=== PATIENT | female | born 1980 | race Asian ===

== ENCOUNTER 2024-12-29 13:41 | Outpatient (REF) | payer OTHER, SELFPAY ==
[2024-12-29 14:31] LABS: MANUAL DIFF FLAG NO
[2024-12-29 17:54] LABS: Hematocrit 45.1 % (37.0-47.0); Hemoglobin 14.6 g/dl (12.0-16.0); Imm Gran Abs Auto 0.02 X10*3/uL (0.00-0.03); Imm Gran Pct Auto 0.2 % (0.0-0.4); Lymphocytes Absolute Auto 2.4 X10*3/uL (1.2-4.9); Mean Corpuscular HGB Conc 32.4 g/dl (31.0-35.0); Mean Corpuscular Hemoglobin 28.8 pg (27.0-33.0); Mean Corpuscular Volume 89.0 fL (80.0-98.0); NRBC Abs Auto 0.000 X10*3/uL (0.0-0.012); NRBC Pct Auto 0.0 /100WBC (0.0-0.2); Platelet Count 390 X10*3/uL (160-400); Red Blood Count 5.07 X10*6/uL (4.20-5.50); White Blood Count 9.2 X10*3/uL (4.8-10.8)
[2024-12-29 18:05] LABS: Appearance Urine Clear; Glucose Urine UA Negative (Negative); PH 6.0 (5.0-9.0); Specific Gravity - Urine <= 1.005 (1.005-1.025)
[2024-12-29 18:42] LABS: Alanine Aminotransferase 11 U/L (0-31); Albumin Level 4.5 g/dL (3.5-5.0); Alkaline Phosphatase 84 U/L (39-117); Anion Gap 12 (12-20); Aspartate Amino Transferase 28 U/L (5-31); Blood Urea Nitrogen 12 mg/dL (9-16); Calcium 9.3 mg/dL (8.4-10.2); Carbon Dioxide 26 mmol/L (22-29); Chloride 104 mmol/L (96-108); Cholesterol 260 mg/dL (<200); Estimated Glomerular Filt Rate > 60; HDL Cholesterol 46 mg/dL (>40); Magnesium 2.2 mg/dL (1.6-2.6); Potassium 4.4 mmol/L (3.3-5.1); Sodium 138 mmol/L (135-145); Total Protein 8.0 g/dL (6.5-8.0); Triglycerides 200 mg/dL (<150)
[2024-12-29 19:00] LABS: Folate 7.6 ng/mL (> or = 4.0); Vitamin B12 437 pg/mL (200-900)
--- OUTSIDE RECORDS SUMMARY | 2024-12-29 19:48 | XMS_ITS | Clinical Summary ---
Author Organization [facility] Address [address] [place] [phone] Phone Care Team Providers Care Data Entry Processor Name Role Phone Physician, No Pcp Primary Care Provider Unavaila ble Allergies No known active allergies Medications No known medications Encounters Date Type Department Care Team Description 10/28/2024 7:35 AM EDT Anesthesia Event [facility] [place] [address] [place] [phone] Kristofer Xie MD Burton, Heather, CRNA 10/28/2024 7:30 AM EDT - 10/28/2024 12:00 PM EDT Surgery [facility] [place] [address] [place] [phone] Carissa Whitaker MD MASTOPEXY [[id number] (CPT )] 10/28/2024 6:08 AM EDT - 10/28/2024 2:40 PM EDT Hospital Encounter [facility] [place] [address] [place] [phone] Carissa Whitaker MD Discharge Disposition: Home or Self Care from Last 3 Months Surgical History Surgery Date Site/Laterality Comments BREAST ENHANCEMENT SURGERY W IMPLANT EYE SURGERY Medical History Medical History Date Comments Glaucoma normal pressure Social History Tobacco Use Types Packs/Day Years Used Date Smoking Tobacco: Never Smokeless Tobacco: Never Tobacco Cessation:Counseling Given: Not Answered Alcohol Use Standard Drinks/Week Comments Not Asked 0 (1 standard drink = 0.6 oz pur e alcohol) couple times a year Interpersonal Safety Answer Date Record ed Physical Abuse Unrecognized value 10/28/2024 Verbal Abuse Unrecognized value 10/28/2024 Comments No Sex and Gender Information Value Date Recorded Sex Assigned at Not on file Legal Sex Female 6:09 AM EDT Gender Identity Not on file Sexual Orientation Not on file Obstetrics History Last Filed Vital Signs Vital Sign Reading Time Taken Comments Blood Pressure 97/75 10/28/2024 12:22 PM EDT Pulse 67 10/28/2024 12:22 PM EDT Temperature 36.5 C (97.7 F) 10/28/2024 12:22 PM EDT Respiratory Rate 16 10/28/2024 12:22 PM EDT Oxygen Saturation 99% 10/28/2024 12:22 PM EDT Inhaled Oxygen Concentration - - Weight 56.7 kg (125 lb) 10/26/2024 2:00 PM EDT Height 160 cm (5' 3 ) 10/26/2024 2:00 PM EDT Body Mass Index 22.14 10/26/2024 2:00 PM EDT Plan of Treatment Health Maintenance Due Date Last Done Comments Breast Cancer Screening 1982 DTaP,Tdap,and Td Vaccines (1 - Tdap) 2001 Hepatitis B Vaccines (1 of 3 - 19+ 3-dose series) 2001 Cervical Cancer Screening: P ap Smear 08/27/2003 HPV Vaccines (1 - 3-dose SCD M series) 2009 Depression Screening 02/10/2024 HIV Screening 07/28/2024 Hepatitis C Screening 07/28/2024 Social Influencers of Health Screening 07/28/2024 COVID-19 Vaccine ( - 2024-2 6 season) 2024 Influenza Vaccine (#1) 2024 RSV Immunization Adult Patie nts (1 - 1-dose 75+ series) 2057 HIB Vaccines Aged Out No longer eligi ble based on patient's age to complete this topic Hepatitis A Vaccines Aged Out No long er eligible based on patient's age to complete this topic IPV Vaccines Aged Out No longer eligi ble based on patient's age to complete this topic MMR Vaccines Aged Out No longer eligi ble based on patient's age to complete this topic Meningococcal ACWY Vaccine Aged Out N o longer eligible based on patient's age to complete this topic Meningococcal B Vaccine Aged Out No l onger eligible based on patient's age to complete this topic Pneumococcal Vaccine: Pediat rics (0 to 5 Years) and At-Risk Patients (6 to 49 Years) Aged Out No longer eligible b ased on patient's age to complete this topic RSV Immunization Patients Un cliff 20 months Aged Out No longer eligible b ased on patient's age to complete this topic Varicella Vaccines Aged Out No longer eligible based on patient's age to complete this topic Medical Devices Implanted Type Area Occupancy Specialist Device Identifier Shelf Expiration Date Model / Serial / Lot Breast Implants Breast Implants Bilateral: Breast Procedures Procedure Name Priority Date/Time Associated Diagnosis Comments TH AN LMA(NO CHARGE) Routine 10/28/2024 7:58 AM EDT CO REMOVAL INTACT BREAST IMPLANT 10/28/2024 7:31 AM EDT Encounter for cosmetic surgery Case Notes CC, HEADLIGHT CO MASTOPEXY 10/28/2024 7:31 AM EDT Encounter for cosmetic surgery Case Notes CC, HEADLIGHT from Last 3 Months Results * TH AN LMA(NO CHARGE) (10/28/2024 7:58 AM EDT) Viky Cramer CRNA - 10/28/2024 7:58 AM EDT Viky Toribio CRNA 10/28/2024 7:59 AM General Information and Staff Patient location during procedure: OR Resident/PBX INSTALLER: Viky Toribio CRNA Performed: resident/CORNELL/CAA Performed by: Viky Toribio CRNA Authorized by: Kristofer Xie MD Intubation Urgency: elective Final Airway Details Number of attempts at approach: 1 Number of other approaches attempted: 0 LMA Size: 4 LMA Type: Unique LMA Seal Pressure: Final airway type: LMA Indications and Patient Condition Indications for airway management: anesthesia Spontaneous ventilation: present Sedation level: Yes Preoxygenated: yes Soft Tissue Damage: No Dentition Unchanged: Yes Patient position: sniffing Mask difficulty assessment: 0 - not attempted us Kristofer Xie MD ANESTHESIA ORDERABLES Final Re sult from Last 3 Months Advance Directives * Full Code - Default (Latest Code Status on File) Date Activated Date Inactivated Comments 10/28/2024 7:14 AM 10/28/2024 4:46 PM This is orde r is used when code status has not been discussed with the patient, or code status is otherwise unknown/unconfirmed To update the patient's code status, place a code status order. Do not modify or discontinue any currently active code status orders. Care Teams Data Entry Processor Relationship Specialty Start Date End Date Physician, No Pcp PCP - General 10/25/24
[2024-12-30 05:32] LABS: CT PCR Urine NOT DETECTED (Not Detect.); NG PCR Urine NOT DETECTED (Not Detect.)
[2024-12-30 08:06] LABS: HBS Num1 7.47 mIU/mL (0-7.99); HBsAGNum1 0.45 S/CO (0.00-0.99); HIV Num 1 0.06 S/CO (0.00-0.99); Hepatitis B Surface Antigen Negative (Negative); ~HepC Num1 0.17 S/CO (0.00-0.79); ~Hepatitis B Surface Antibody NONREACTIVE (Nonreactive); ~Hepatitis C Antibody Nonreactive (Nonreactive)
[2025-01-03 07:58] LABS: VITAMIN D (1,25 OH) D3 63 pg/mL; Vit D (1,25-Dihydroxy) Total 63 pg/mL (18-72); Vitamin D (1,25 OH) D2 <8 pg/mL
== END 2024-12-29 13:42 | disposition home or self-care (01) ==
LOC: HO.HKASLDS 13:41
PROVIDERS: PCP Student in an Organized Health Care Education/Training Program; Visit Provider Student in an Organized Health Care Education/Training Program
DX: Z76.89 Persons encountering health services in other specified circumstances (principal); Z23 Encounter for immunization; R03.0 Elevated blood-pressure reading, without diagnosis of hypertension; H93.19 Tinnitus, unspecified ear; H40.89 Other specified glaucoma
CPT/HCPCS: 80053; 80061; 81003; 82607; 82652; 82746; 83036; 83735; 84443; 85025; 86706; 86803; 87340; 87389; 87491; 87591; 90471; 90656; 99202

== ENCOUNTER 2024-12-29 13:41 | Outpatient (AMB) | payer OTHER, SELFPAY ==
--- NOTE | 2024-12-29 13:47 | A.OFFPC_ITS ---
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 Elevated blood pressure: The patient is concerned about high blood pressure, which runs in the family. Readings have been higher than before ever since the patient's father and the patient experienced significant stress. The patient is only aware of elevated readings when measured in clinical settings, such as at a doctor's or dentist's office. Tinnitus: The patient developed constant tinnitus about a year ago, approximately one month after moving to the area. The patient was evaluated and provided with hearing aids, which did not provide any benefit. The patient was advised to investigate for other comorbidities, such as high cholesterol, as a potential underlying cause. Low-pressure glaucoma, left eye: The patient has a history of low-pressure glaucoma in the left eye. The condition is managed with Timolol eye drops. Health Maintenance: The patient is up-to-date with mammograms, with the most recent one in August having normal results. The last Pap smear with HPV testing was performed two years ago and was normal, with a recommended follow-up interval of five years. 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 - The patient is a single parent. - Reports experiencing significant stres s following the of the patient's father nearly three years ago. - Sleep: Reports difficulty falling asle ep for the last few weeks, but sleep is uninterrupted once asleep. - The patient is not currently sexually active and is not using contraception. Family History: - Reports a family history of high blood pressure and high cholesterol. - Father of stomach cancer (gastroe sophageal junction). - Paternal grandfather of stomach c ancer. Diagnostic Results: - Tests: Mammogram in August was normal. - Tests: Pap smear with HPV co-testing t wo years ago was normal, with a recommendation for repeat testing in five years. Past Medical History - Low-pressure glaucoma, left eye, manag ed with Timolol eye drops. - Tinnitus, constant, for approximately one year. Health Maintenance - Comprehensive lab work will be ordered , including a CBC, CMP, calcium, magnesium, thyroid panel, B12, folate, vitamin D, hemoglobin A1c, and a lipid panel. - Baseline screening for hepatitis B, he patitis C, and HIV will be performed. - A follow-up visit is scheduled in two weeks to review the results. [facility] Medical History (Updated 12/29/24 @ 14:37 by Rodolfo Sandoval MD) Glaucoma Tinnitus Elevated blood pressure reading Family History (Updated 12/29/24 @ 13:53 by Loni Cardona CMA) Mother HTN (hypertension) Hypercholesteremia Father HTN (hypertension) Social History Housing: House Patient Tobacco Use Status: Never used Tobacco e-Cigarette/Vaping Use: Never Used service: No Current occupational status: unemployed Cognitive needs: No Hearing needs: Yes (has bilateral hearing aids for tinnitus) Vision needs: Yes (contacts) Questionnaire PHQ-9 Over the last 2 weeks, how often have you been bothered by any of the following problems? 1. Little interest or pleasure in doing things: several days 2. Feeling down, depressed, or hopeless: not at all 3. Trouble falling or staying asleep, or sleeping too much: several days 4. Feeling tired or having little energy: several days 5. Poor appetite or overeating: not at all 6. Feeling bad about yourself - or that you are a failure or have let yourself or your family down: not at all 7. Trouble concentrating on things, such as reading the newspaper or watching television: several days 8. Moving or speaking so slowly that other people could have noticed. Or the opposite - being so fidgety or restless that you have been moving around a lot more than usual: not at all 9. Thoughts that you would be better off or of hurting yourself in some wa y: not at all Total score: 4 Depression Screening Interpretation: Negative Depression Screening Done: Yes Source: Developed by Drs. Ildefonso Hackett, Sheela Alfaro, Rosendo Nair and colleagues, with an educational reymundo from [employer]. Thrive Questionnaire Date Thrive assessed: 12/29/24 I am a: Patient What is your living situation today?: I have a steady place to live Within the past 12 months, did the food you bought not last and you didn't have the money to get more?: Never true Within the past 12 months, did you worry whether your food would run out before you got money to buy more?: Never true Do you have trouble paying for medicines?: No Do you have trouble getting transportation to medical appointments?: No Do you have trouble paying your heating and electricity bill?: No Do you have trouble taking care of your child, family member or friend?: No Do you have trouble with day-to-day activities such as bathing, preparing meals, shopping, managing finances, etc.?: No Are you currently unemployed and looking for a job?: I choose not to answer this question Are you interested in more education?: I choose not to answer this question Please select the resources that you would like help with: None Currently or been in a relationship where the following occur: I choose not to answer THRIVE Score: 0 AUDIT C Alcohol Use Questionnaire (AUDIT-C) 1. How often do you have a drink containing alcohol?: Never Total Score: 0 CRISTINA-7 AMB Questionnaire CRISTINA-7 Date CRISTINA - 7 assessed: 12/29/24 Feeling nervous, anxious, or on edge: 0 = Not at all Not being able to stop or control worryin = Not at all Worrying too much about different things: 0 = Not at all Trouble relaxin = Not at all Being so restless that it is hard to sit still: 0 = Not at all Becoming easily annoyed or irritable: 0 = Not at all Feeling afraid as if something awful might happen: 0 = Not at all Total CRISTINA-7 score (0-4 normal; 5-9 mild; 10-14 moderate; 15-21 severe): 0 Source: Developed by Sheela Cole Kurt Kroenke and colleagues, with an educational reymundo from [employer]. Review of Systems Narrative Review of Systems - Eyes: Reports low-pressure glaucoma in the left eye. - Ears: Reports constant tinnitus for the past year. - Cardiovascular: Denies swelling of the lower extremities. - Gastrointestinal: Reports normal bowel movements. - Genitourinary: Reports normal urination. - Gynecological: Reports regular menses. - Psychiatric: Reports experiencing significant stress. - Neurological: Reports recent difficulty initiating sleep but denies difficulty maintaining sleep. 10-point ROS reviewed and negative except as noted in HPI Physical exam (Primary Care) Vital Signs: Last Vital Signs Pulse 58 12/29/24 13:51 BP 132/82 12/29/24 13:51 Pulse Ox 100 12/29/24 13:51 Oxygen Delivery Method Room Air 12/29/24 13:51 BMI result Body Mass Index 20.6 Tobacco/Smoking Status: Tobacco use Status Tobacco use date assessed 12/29/24 12/29/24 13:49 Patient Tobacco Use Status Never used Tobacco 12/29/24 13:49 e-Cigarette/Vaping Use Never Used 12/29/24 13:58 PHQ-9: PHQ-9 Score PHQ-9: Total score 4 12/29/24 14:02 Depression Screening Interpretation: Negative Thrive Assessment: Date of Thrive Assessment Date Thrive assessed 12/29/24 12/29/24 13:49 Currently or been in a relationship where the following occur: I choose not to answer Narrative Physical Exam General: Well-appearing, in no acute distress. Vital signs: Blood pressure is 132/82, slightly elevated but not concerning. HEENT: Normocephalic, atraumatic. PERRLA, EOMI. Conjunctiva clear, sclera anicteric. Oropharynx clear, mucous membranes moist. TMs intact bilaterally. Noted low pressure glaucoma in the left eye, patient uses Timolol eye drops. Neck: Supple, no lymphadenopathy, no thyromegaly, no JVD or carotid bruits. Cardiovascular: RRR, normal S1/S2, no murmurs, rubs, or gallops. Peripheral pulses 2+ and symmetric. No edema. Respiratory: Lungs clear to auscultation bilaterally, no wheezes, rales, or rhonchi. Normal effort. Abdomen: Soft, non-tender, non-distended. Normoactive bowel sounds. No hepatosplenomegaly, no masses. MSK: Full range of motion, no joint swelling or deformity. Normal gait. Skin: Warm, dry, intact. No rashes, lesions, or pallor. Neuro: Alert and oriented x3. Cranial nerves II-XII intact. Strength 5/5 throughout. Sensation intact. Reflexes 2+ symmetric. Normal coordination and gait. Psych: Appropriate mood and affect. Normal judgment and insight. Office Procedures Flu Questionnaire Does the patient have a severe egg allergy?: No Does the patient have severe life threatening allergies?: No Does the patient have a fever or illness today?: No Has the patient ever had Guillain-[place] Syndrome?: No Has the patient ever had any past reaction to a flu shot?: No Immunizations Fluarix [id number] (PF) 45 mcg (15 mcg x 3)/0.5 mL IM syringe Performing Provider: Rodolfo Sandoval MD Performing Location: [facility] Administered by: Loni Cardona CMA on 12/29/24 14:03 Dose Route Admin Location Dispensed Lot Number Expiration Date NDC Kst Operator 0.5 mL IM Right Deltoid 0.5 mL [id number] 08/08/25 [id number] [employer] VIS Given Date VIS Provided VIS Publication Date 12/29/24 Single Vaccine 24 Eligibility Eligibility Date Funding Source Not [facility] Eligible 12/29/24 Private Coding Level of Care Code New Pt Level 4 (98636) Diagnoses Elevated blood pressure reading R03.0 Tinnitus H93.19 Glaucoma H40.9 Assessment & Plan Assessment & Plan (1) Elevated blood pressure reading: Code(s): R03.0 - Elevated blood-pressure reading, without diagnosis of hypertension Category: Medical (2) Tinnitus: Code(s): H93.19 - Tinnitus, unspecified ear Category: Medical (3) Glaucoma: Code(s): H40.9 - Unspecified glaucoma Category: Medical Plan Consent Patient was informed and verbally consented to the use of an ambient scribe for clinic note documentation during this visit. Plan 1. Elevated Blood Pressure Reading - A definitive diagnosis of hypertension is pending, as the in-office reading of 132/82 mmHg could be due to white coat effect. - A prescription for a home blood pressure kit will be provided. - The patient was instructed on the proper technique for home monitoring: sit upright with back support, feet flat, wait 10 minutes, and keep the arm at heart level. - The patient is to record blood pressure readings twice daily (morning and night) for two weeks and bring the log to the follow-up appointment for review. 2. Tinnitus - A lipid panel and hemoglobin A1c have been ordered as part of the [facility] lab work to investigate potential metabolic comorbidities contributing to the tinnitus. - The results will be discussed at the follow-up visit. Discussion Notes I informed the patient that the purpose of this visit is to establish care and address the patient's health concerns. Regarding the concern for high blood pressure, I explained that the single office reading of 132/82 mmHg is not suff icient for a diagnosis and could be due to a white coat effect. I recommended home blood pressure monitoring, provided a prescription for a BP kit, and gave detailed instructions on how to properly measure and log readings twice daily for two weeks. I also explained that we would order comprehensive bloodwork to check cholesterol, blood sugar, kidney function, liver function, and other baseline markers, which would help evaluate the patient's concerns about hyperlipidemia and potential contributors to tinnitus. We will review all these results at a follow-up visit in two weeks. Patient Instructions - Go to the lab to have your blood drawn for the ordered tests. - Get a blood pressure machine with the prescription provided. - Measure your blood pressure twice a day, once in the morning and once at night, for the next two weeks. - Keep a written log of your blood pressure readings to bring to your next appointment. - Schedule a follow-up appointment in two weeks to review your lab results and blood pressure log. Medical Decision Making The patient is a 44-year-old individual presenting to [facility] with concerns for hypertension and hyperlipidemia, partly driven by family history. The single in-office blood pressure reading of 132/82 mmHg is not diagnostic for essential hypertension, and the possibility of white coat hypertension is high given the context of medical appointments being the only time it is checked. Therefore, the appropriate next step is to obtain [id number] readings via a home blood pressure log over two weeks to make an accurate assessment. The patient's chronic tinnitus, which was refractory to hearing aids, warrants investigation for underlying metabolic causes, making a lipid panel and other comprehensive labs medically necessary. The lab order is also indicated for general health maintenance for a new patient. The significant family history of stomach cancer is noted as a risk factor for future health screening and counseling. Total Time Statement 30min Total time spent caring for the patient today includes pre-visit chart review, documentation, review of laboratory and diagnostic imaging results, medication reconciliation, medically necessary evaluation, counseling on diagnoses, care coordination, ordering appropriate tests and medications, review of tests performed by other providers, reporting test results to the patient, and communication with other healthcare providers. Orders: Orders Comprehensive Met. Panel Today Z13.9 - Encounter for screening, unspecified HIV Ab/Ag Today Z13.9 - Encounter for screening, unspecified Lipid Panel Today Z13.9 - Encounter for screening, unspecified Vitamin B12 and Folate Today Z13.9 - Encounter for screening, unspecified Hemoglobin A1c Today Z13.9 - Encounter for screening, unspecified Influenza [id number] Immunization Today Z23 - Encounter for immunization Complete Blood Count Auto Diff Today Z13.9 - Encounter for screening, unspecified Hepatitis B Surface Antigen Today Z13.9 - Encounter for screening, unspecified Hepatitis C Antibody Today Z13.9 - Encounter for screening, unspecified TSH reflex Free T4 Today Z13.9 - Encounter for screening, unspecified CT NG by PCR Urine Today Z13.9 - Encounter for screening, unspecified UA CC w/rflx Micro + Cult Today Z13.9 - Encounter for screening, unspecified Magnesium Today Z13.9 - Encounter for screening, unspecified Vitamin D 1,25 dihydroxy Today Z13.9 - Encounter for screening, unspecified Hepatitis B Surface Antibody Today Z13.9 - Encounter for screening, unspecified Medications: New [blood pressure kit] As directed 1 ea 0RF R03.0 - Elevated blood-pressure reading, without diagnosis of hypertension
[2024-12-29 13:51] VITALS: BP 132/82; PULSE 58; O2SAT 100; BMI 20.6
== END 2024-12-29 14:21 | disposition home or self-care (01) ==
LOC: HO.HMCFMS 13:42
PROVIDERS: PCP Internal Medicine; Visit Provider Student in an Organized Health Care Education/Training Program
DX: R03.0 Elevated blood-pressure reading, without diagnosis of hypertension (principal); H93.19 Tinnitus, unspecified ear; H40.9 Unspecified glaucoma; Z23 Encounter for immunization

== ENCOUNTER 2025-01-17 09:39 | Outpatient (AMB) | payer OTHER, SELFPAY ==
[2025-01-17 09:45] VITALS: BP 114/82; PULSE 72; O2SAT 99; BMI 21.1
--- NOTE | 2025-01-17 09:45 | MHC.PC.OV ---
Vital Signs 01/17/25 09:45 Height 5 ft 3.78 in Weight 122 lb 4 oz BMI 21.1 BP 114/82 Blood Pressure Location Rt brachial Position Sitting Pulse 72 Pulse Source Pulse Oximeter Temp Source Oral Pulse Oximetry (%) 99 Oxygen Delivery Method Room Air Intake Visit Reasons: 2 wk - lab review Accompanied by: Self / Same As Patient Allergies No Known Allergies Allergy (Verified 01/17/25 09:45) Tobacco use date assessed: 01/17/25 Dental Screening Dental Screen Date: 01/17/25 Did you have a dental visit in the last 12 months?: Yes HPI HPI Comments History of Present Illness Details History of Present Illness The patient is a 44 year old female presenting for a follow-up visit to review lab results. Hyperlipidemia: The patient's recent lab results show elevated lipids, specifically triglycerides at 200 mg/dL, total cholesterol at 260 mg/dL, and LDL cholesterol at 174 mg/dL. Her diet includes a lot of starch and some eggs. Anxiety: The patient reports experiencing some anxiety, particularly following her 's passing. Social History: - Family status: The patient's recently . - Nutrition: Reports eating a lot of starch and some eggs. Diagnostic Results: - Lab results reviewed during the visit: - CBC: White blood cells, red blood cells, hemoglobin, and hematocrit are normal. - CMP: Sodium, potassium, kidney function, and liver function are normal. - Hemoglobin A1c: Normal - Calcium: Normal - Vitamin D, Folate, and B12: All normal. - Lipid Panel: Triglycerides 200 mg/dL (target <150), Total Cholesterol 260 mg/dL (target <200), LDL 174 mg/dL (target <100). - Urinalysis: Normal - Hepatitis B, Hepatitis C, HIV: All negative. Past Medical History Health Maintenance - Lab screening: Recent bloodwork performed and reviewed. - Cardiovascular disease risk reduction: Discussed lifestyle modifications to lower elevated cholesterol, with a focus on dietary changes. - Nutrition counseling: Referral placed for a registered dietitian to provide education. - Follow-up: Plan to repeat labs in six months to assess response to lifestyle changes. [facility] Medical History (Updated 01/17/25 @ 19:03 by Rodolfo Sandoval MD) Adjustment disorder with anxiety Elevated triglycerides with high cholesterol Dyslipidemia Glaucoma Tinnitus Elevated blood pressure reading Family History Mother HTN (hypertension) Hypercholesteremia Father HTN (hypertension) Social History Housing: House Patient Tobacco Use Status: Never used Tobacco e-Cigarette/Vaping Use: Never Used service: No Current occupational status: unemployed Cognitive needs: No Hearing needs: Yes (has bilateral hearing aids for tinnitus) Vision needs: Yes (contacts) Questionnaire PHQ-9 Over the last 2 weeks, how often have you been bothered by any of the following problems? 1. Little interest or pleasure in doing things: several days 2. Feeling down, depressed, or hopeless: not at all 3. Trouble falling or staying asleep, or sleeping too much: several days 4. Feeling tired or having little energy: several days 5. Poor appetite or overeating: not at all 6. Feeling bad about yourself - or that you are a failure or have let yourself or your family down: not at all 7. Trouble concentrating on things, such as reading the newspaper or watching television: several days 8. Moving or speaking so slowly that other people could have noticed. Or the opposite - being so fidgety or restless that you have been moving around a lot more than usual: not at all 9. Thoughts that you would be better off or of hurting yourself in some way: not at all Total score: 4 Depression Screening Interpretation: Negative Depression Screening Done: Yes Source: Developed by Drs. Ildefonso Hackett, Sheela Alfaro, Rosendo Nair and colleagues, with an educational reymundo from [employer]. Thrive Questionnaire Date Thrive assessed: 01/17/25 I am a: Patient What is your living situation today?: I have a steady place to live Within the past 12 months, did the food you bought not last and you didn't have the money to get more?: Never true Within the past 12 months, did you worry whether your food would run out before you got money to buy more?: Never true Do you have trouble paying for medicines?: No Do you have trouble getting transportation to medical appointments?: No Do you have trouble paying your heating and electricity bill?: No Do you have trouble taking care of your child, family member or friend?: No Do you have trouble with day-to-day activities such as bathing, preparing meals, shopping, managing finances, etc.?: No Are you currently unemployed and looking for a job?: I choose not to answer this question Are you interested in more education?: I choose not to answer this question Please select the resources that you would like help with: None Currently or been in a relationship where the following occur: I choose not to answer THRIVE Score: 0 AUDIT C Alcohol Use Questionnaire (AUDIT-C) 1. How often do you have a drink containing alcohol?: Never Total Score: 0 CRISTINA-7 AMB Questionnaire CRISTINA-7 Date CRISTINA - 7 assessed: 01/17/25 Feeling nervous, anxious, or on edge: 0 = Not at all Not being able to stop or control worryin = Not at all Worrying too much about different things: 0 = Not at all Trouble relaxin = Not at all Being so restless that it is hard to sit still: 0 = Not at all Becoming easily annoyed or irritable: 0 = Not at all Feeling afraid as if something awful might happen: 0 = Not at all Total CRISTINA-7 score (0-4 normal; 5-9 mild; 10-14 moderate; 15-21 severe): 0 Source: Developed by Drs. Ildefonso Hackett, Sheela Alfaro, Rosendo Nair and colleagues, with an educational reymundo from [employer]. Review of Systems Narrative Review of Systems - Psychiatric: Reports some anxiety. 10-point ROS reviewed and negative except as noted in HPI Physical exam (Primary Care) Vital Signs: Last Vital Signs Pulse 72 01/17/25 09:45 BP 114/82 01/17/25 09:45 Pulse Ox 99 01/17/25 09:45 Oxygen Delivery Method Room Air 01/17/25 09:45 BMI result Body Mass Index 21.1 Tobacco/Smoking Status: Tobacco use Status Tobacco use date assessed 01/17/25 01/17/25 09:46 Patient Tobacco Use Status Never used Tobacco 01/17/25 09:46 e-Cigarette/Vaping Use Never Used 01/17/25 09:46 PHQ-9: PHQ-9 Score PHQ-9: Total score 4 01/17/25 09:53 Depression Screening Interpretation: Negative Thrive Assessment: Date of Thrive Assessment Date Thrive assessed 01/17/25 01/17/25 09:46 Currently or been in a relationship where the following occur: I choose not to answer Narrative Physical Exam General: Well-appearing, in no acute distress. Vital signs: Within normal limits. HEENT: Normocephalic, atraumatic. PERRLA, EOMI. Conjunctiva clear, sclera anicteric. Oropharynx clear, mucous membranes moist. TMs intact bilaterally. Neck: Supple, no lymphadenopathy, no thyromegaly, no JVD or carotid bruits. Cardiovascular: RRR, normal S1/S2, no murmurs, rubs, or gallops. Peripheral pulses 2+ and symmetric. No edema. Respiratory: Lungs clear to auscultation bilaterally, no wheezes, rales, or rhonchi. Normal effort. Abdomen: Soft, non-tender, non-distended. Normoactive bowel sounds. No hepatosplenomegaly, no masses. MSK: Full range of motion, no joint swelling or deformity. Normal gait. Skin: Warm, dry, intact. No rashes, lesions, or pallor. Neuro: Alert and oriented x3. Cranial nerves II-XII intact. Strength 5/5 throughout. Sensation intact. Reflexes 2+ symmetric. Normal coordination and gait. Psych: Appropriate mood and affect. Normal judgment and insight. Reports experiencing some anxiety, especially related to the recent passing of her . Office Procedures Flu Questionnaire Does the patient have a severe egg allergy?: No Does the patient have severe life threatening allergies?: No Does the patient have a fever or illness today?: No Has the patient ever had Guillain-[place] Syndrome?: No Has the patient ever had any past reaction to a flu shot?: No Immunizations Fluarix [id number] (PF) 45 mcg (15 mcg x 3)/0.5 mL IM syringe Performing Provider: Rodolfo Sandoval MD Performing Location: [facility] [place] [facility] Documented (not given) by: Loni Cardona CMA on 01/17/25 09:54 Reason Not Given: Received Previously Coding Level of Care Code Est Pt Level 3 (34329) Diagnoses Elevated triglycerides with high cholesterol E78.2 Adjustment disorder with anxiety F43.22 Dyslipidemia E78.5 Assessment & Plan Assessment & Plan (1) Elevated triglycerides with high cholesterol: Code(s): E78.2 - Mixed hyperlipidemia Category: Medical (2) Adjustment disorder with anxiety: Code(s): F43.22 - Adjustment disorder with anxiety Category: Medical (3) Dyslipidemia: Code(s): E78.5 - Hyperlipidemia, unspecified Category: Medical Plan Consent Patient was informed and verbally consented to the use of an ambient scribe for clinic note documentation during this visit. Plan 1. Hyperlipidemia - The patient's lab results show elevated triglycerides (200 mg/dL), total cholesterol (260 mg/dL), and LDL cholesterol (174 mg/dL), with the LDL being the primary concern due to its role in plaque formation in arteries. - Recommended initial management is with lifestyle modifications, focusing on dietary changes. - A referral will be placed for a registered dietitian to contact the patient for nutritional education. - Plan to repeat lipid panel in six months to assess the impact of lifestyle changes. - If no significant improvement is seen in six months, other treatment options will be discussed. 2. Anxiety - The patient's reported anxiety, especially in the context of her 's recent passing, was noted. Discussion Notes I reviewed the patient's recent lab work. Most results were normal, including her CBC, metabolic panel, A1c, and vitamin levels. However, her lipid panel was concerning, with a triglyceride level of 200, total cholesterol of 260, and an LDL of 174, which should be below 100. I explained that while the triglycerides are not a primary cardiovascular risk at this level, the elevated LDL is the main concern as it can lead to plaque buildup in the arteries. We discussed initiating lifestyle modifications, and I placed an order for a registered dietitian to provide her with education. We will repeat her labs in six months to assess for improvement, at which point we will discuss other options if necessary. The patient agreed to this plan. Patient Instructions - Your blood work shows that you have high cholesterol, specifically the bad LDL cholesterol, which can build up in your arteries. - We will start by trying to lower your cholesterol with lifestyle changes, such as modifying your diet. - We have arranged for a registered dietitian to call you to provide education on healthy eating. - Please schedule a follow-up appointment in about six months to repeat your lab work and see how the diet changes have worked. - All of your other lab results, including tests for anemia, kidney and liver function, and diabetes, were normal. Medical Decision Making The patient is a 44-year-old female who presented for a review of her recent lab results. The primary clinical finding is mixed hyperlipidemia, most significantly an elevated LDL cholesterol of 174 mg/dL. While her triglycerides are also elevated at 200 mg/dL, they are not at a level that poses an immediate risk for pancreatitis. The elevated LDL is the main concern for long-term cardiovascular risk due to its atherogenic potential. Given her age and the absence of other immediate cardiovascular risk factors discussed, the initial management strategy is a trial of lifestyle modification. A referral to a registered dietitian was placed to provide structured nutritional guidance. The plan is to reassess her lipid panel in six months to evaluate the efficacy of these lifestyle changes before considering pharmacotherapy. Other lab parameters, including CBC, CMP, and A1c, were within normal limits, ruling out concurrent anemia, electrolyte disturbances, or uncontrolled diabetes. Total Time Statement 20 min Total time spent caring for the patient today includes pre-visit chart review, documentation, review of laboratory and diagnostic imaging results, medication reconciliation, medically necessary evaluation, counseling on diagnoses, care coordination, ordering appropriate tests and medications, review of tests performed by other providers, reporting test results to the patient, and communication with other healthcare providers. Orders: Orders Influenza [id number] Immunization Today Z23 - Encounter for immunization Referrals Nurse Navigator Referral E78.2 - Mixed hyperlipidemia, E78.5 - Hyperlipidemia, unspecified
== END 2025-01-17 09:59 | disposition home or self-care (01) ==
LOC: HO.HMCFMS 09:40
PROVIDERS: PCP Internal Medicine; Visit Provider Student in an Organized Health Care Education/Training Program
DX: E78.2 Mixed hyperlipidemia (principal); F43.22 Adjustment disorder with anxiety; E78.5 Hyperlipidemia, unspecified; Z23 Encounter for immunization

== ENCOUNTER → 2025-01-17 09:39 | Outpatient (BNVA) | payer OTHER, SELFPAY | PROVIDERS: PCP Internal Medicine; Visit Provider Student in an Organized Health Care Education/Training Program | DX: E78.2 Mixed hyperlipidemia (principal); F43.22 Adjustment disorder with anxiety; E78.5 Hyperlipidemia, unspecified | CPT/HCPCS: 90471; 99212 ==